=== PATIENT | male | born 1950 ===

== ENCOUNTER 2016-04-25 08:25 | Day surgery (SDC) | payer OTHER ==
[~2016-04-25] VITALS: Ht 180.3 cm; Wt 66.0 kg
[~2016-04-25 08:25] MED LIST: CEFAZOLIN 1000MG/55 ML D5W 55 ML IV SCH; LACTATED RINGER'S 1000ML IV SCH; PATIENT'S ALLERGY INFO NEEDS ENTERED SCH; PATIENT'S HEIGHT AND/OR WEIGHT NEEDED SCH
[2016-04-25] MEDS ORDERED: ASPI-428 PO (08:50)
[2016-04-25] MEDS ORDERED: CLOP1TAB15 PO (08:50)
[2016-04-25] MEDS ORDERED: METO-217 PO (08:50)
[2016-04-25 08:57] VITALS: BP 124/79; PULSE 82; TEMP 36.6; O2SAT 97; Ht 180.3 cm; Wt 66.0 kg
[2016-04-25] MEDS ORDERED: CEFAZOLIN SOD 1000MG/55 ML D5W IV ONE (09:24)
--- NOTE | 2016-04-25 09:49 | History & Physical Bridge Note ---
H&P Re-Evaluation Bridge Note: I have examined the patient, reviewed the History & Physical and in the interval since the performance of the History & Physical I have noted the following changes of clinical significance: No changes noted
[2016-04-25] MEDS ORDERED: BUPIVACAINE 0.5 % 5 MG/1 ML MPF 30ML VIAL ONE (10:02)
[2016-04-25] MEDS ORDERED: BACITRACIN 50000 UNIT VIAL ONE (10:02)
[2016-04-25] MEDS ORDERED: LIDOCAINE HCL 1% 20 ML VIAL ONE (10:02)
--- NOTE | 2016-04-25 11:29 | [facility] Post Operative Brief Note ---
Immediate Operative Summary Operative Date Apr 25, 2016. Pre-Operative Diagnosis BIV ICD AT [facility], [facility] Post-Operative Diagnosis SAME Procedure(s) Performed BIVENTRICULAR ICD GENERATOR CHANGE Surgeon JASON FLORES Learning Support Resource Room Teacher Surgeon(s) NONE Estimated Blood Loss <5CC Findings NONE Fluids (cc crystalloids) 200CC Specimens NONE Drains NONE Anesthesia NONE ONLY LOCAL Complication(s) None Disposition [facility]
[2016-04-25 11:30] VITALS: BP 134/78; PULSE 70; TEMP 37.2; O2SAT 98
--- NOTE | 2016-04-25 11:33 | Discharge Instructions ---
Discharge Instructions Visit Reason for Visit: Ischemic Cardiomyopathy, Paroxysmal V-Tach Discharge Discharge Diagnosis / Problem: BIV ICD AT [facility], [facility] Discharge Goals Goal(s): Improve function Activity Recommendations Lifting Limitations: no more than 10 pounds (FOR 2 WEEKS WITH THE LEFT ARM) May Resume Sexual Activity: when tolerated Shower/Bathe: tomorrow Driving or Machine Use: no limitations Anesthesia . Post Anesthesia Instructions: If you have had General Anesthesia or IV Sedation: * Do not drive today. * Resume driving when surgeon permits. * Do not make important decisions or sign legal documents today. * Call surgeon for: 1. Temperature elevations greater than 101 degrees F. 2. Uncontrollable pain. 3. Excessive bleeding. 4. Persistent nausea and vomiting. 5. Medication intolerance (nausea, vomiting or rash). * For nausea and vomiting use only clear liquids such as: tea, soda, bouillon until nausea subsides, then gradually increase diet as tolerated. * If you have any concerns or questions, call your surgeon's office. If physician is unavailable and it is an emergency, call 911 or go to the nearest emergency room. . Diet Recommendations Recommended Home Diet: resume previous diet Procedures Procedures Performed: BIVENTRICULAR ICD GENERATOR CHANGE Pending Studies Studies pending at discharge: no Medical Emergencies . Who to Call and When: Medical Emergencies: If at any time you feel your situation is an emergency, please call 911 immediately. . Non-Emergent Contact Non-Emergency issues call your: [employer] Officer . . "Provider Documentation" section prepared by Elke Hutchison.
[2016-04-25 11:46] VITALS: BP 142/78; PULSE 72; O2SAT 97
[2016-04-25 12:02] VITALS: BP 140/77; PULSE 86; TEMP 36.9; O2SAT 96
--- NOTE | 2016-04-29 03:14 | OPERATIVE REPORT ---
DATE OF OPERATION: 04/25/2016 PREOPERATIVE DIAGNOSES: Ischemic cardiomyopathy and a biventricular implantable cardioverter defibrillator at elective replacement indicator. POSTOPERATIVE DIAGNOSIS: Same. PROCEDURE: Biventricular implantable cardiac defibrillator rate responsive generator change. SURGEON: Dr. Elke Hutchison. SNOW FENCE ERECTOR: None. ANESTHESIA: Only local lidocaine, bupivacaine mixture were given; there was no conscious sedation. IV FLUIDS: 200 mL. BLOOD LOSS: Less than 5 mL. COMPLICATIONS: None. CONDITION: Stable. URINE OUTPUT: Not applicable. SPECIMENS: None. FINDINGS: None. DRAINS: None. INDICATIONS: This is a 66-year-old gentleman with a past medical history of ischemic cardiomyopathy, ejection fraction 70%. He underwent a biventricular implantable cardiac defibrillator back in 2010. Of note, he did have the [employer] battery depletion recall and his device did seem to have an expedited dropoff and hit JONATHAN, hyperlipidemia, gastroesophageal reflux disease, chronic systolic heart failure, [place] Heart Association class 3, coronary artery disease with an ME in 1986 and a CVA. Due to this patient hitting JONATHAN, he was recommended a generator change. CONSENT: Consent was obtained prior to the patient going into the electrophysiology. The patient was informed of risks, benefits and alternatives to the procedure. Risks include but not limited to sudden cardiac , cardiac arrhythmias, cerebrovascular accident, myocardial infarction, bleeding and infection. The patient understood these risks and agreed to the procedure as planned. Informed consent was obtained. DESCRIPTION OF THE PROCEDURE: The patient was brought into the electrophysiology lab in a fasting state. He was connected to continuous cardiac monitoring. A timeout was performed to ensure patient's identity and procedure correctly. The patient received prophylactic antibiotics prior to incision. He was prepped and draped over the left infraclavicular space in a normal surgical standard fashion. Local anesthesia only was given throughout the procedure for patient's comfort level. A 20 mL of 1% lidocaine, bupivacaine mixture were given over the prior surgical incision. Incision was made over the prior surgical incision. Blunt dissection was performed to identify the prior defibrillator. The capsule was disrupted using iris scissors and the defibrillator was actually freed from the capsule and removed from the body. The wires were tested intraoperatively, see below for results. The capsule was disrupted inferiorly and caudally to allow for a new blood flow. The pocket was flushed with copious amounts of bacitracin saline wash and inspected for hemostasis. The new defibrillator was then attached to the leads making sure that the pins were in appropriate position, passed the set screws and the set screws were tightened. The defibrillator was then placed into the pocket, making sure that the leads were lying flat beneath the device. The incision was closed in a 3-layer fashion using a 2-0 Vicryl suture followed by a 3-0 Vicryl interrupted suture followed by a 4-0 Monocryl running stitch and Dermabond was applied. EQUIPMENT: 1. Explanted generator was a [employer] [id number], serial #[id number], implanted 08/02/2010, voltage JONATHAN at 04/06/2016. 2. Right atrial lead - model #[id number], serial #[id number], implanted 08/02/2010. 3. Right ventricular lead - model #1265E61, serial #[id number], implanted 08/02/2010. 4. Left ventricular lead - model #[id number]-86, serial #[id number], implanted 08/02/2010. INTRAOPERATIVE TESTIN. Right atrial lead: P-wave 1.1 millivolts, impedance 465 ohms, threshold 0.7 volts at 1.3 milliamps. 2. Right ventricular lead: R-wave sensing 5.8 millivolts, impedance 400 ohms, threshold 1 volt at 2.5 milliamps. 3. Left ventricular lead programmed bipolar LV tip to LV ring, impedance 749 ohms, threshold 1.2 volts at 1.7 milliamps. FINAL MEASUREMENTS THROUGH THE DEVICE: 1. Right atrial lead: P-wave 0.9 millivolts, impedance 399 ohms, threshold 1 volt at 0.4 milliseconds. 2. Right ventricular lead: R-wave 6.9 millivolts, impedance 361 ohms, threshold 1.25 volts at 0.4 milliseconds. 3. Left ventricular lead programs bipolar LV tip to LV ring, impedance 703 ohms, threshold 1.25 volts at 0.4 milliseconds. 4. SVC coil 79 ohms and the RV coil 64 ohms. FINAL PARAMETERS: 1. DDDR 60/120. 2. Right atrial amplitude is 2 volts, pulse width 0.4 milliseconds, sensitivity 0.3 millivolts. 3. Right ventricular amplitude is 2.5 volts, pulse width 0.4 milliseconds, sensitivity 0.3 millivolts. 4. Left ventricular amplitude 1.75 volts, pulse width 0.4 milliseconds. 5. A VT monitor zone at 146 beats per minute, a VT zone at 176 beats per minute with 20 intervals, a VF zone at 200 is 30/40 beats per minute. IMPRESSION: Successful biventricular implantable cardiac defibrillator rate responsive generator change under fluoroscopic guidance. PLAN: The patient had to go home and drive himself since he did not have any conscious sedation. He should continue his home medications. He will call my office to let me know that he got home safely. He will follow up in my [place] office after 10 days for device and wound check. I attest to the content of the Intraoperative Record and any orders documented therein. Any exceptions are noted below. YANY
== END 2016-04-25 12:07 | disposition home or self-care (01) ==
LOC: C.ACU 08:25
PROVIDERS: ATTEND Internal Medicine
DX: Z45.02 Encounter for adjustment and management of automatic implantable cardiac defibrillator (principal); I25.10 Atherosclerotic heart disease of native coronary artery without angina pectoris; I25.5 Ischemic cardiomyopathy; R73.01 Impaired fasting glucose; I10 Essential (primary) hypertension; E78.5 Hyperlipidemia, unspecified

== ENCOUNTER → 2016-08-03 | Outpatient (CLI) | payer OTHER ==
[~2016-08-03] MED LIST changes: +ASPI-428 PO; -CEFAZOLIN 1000MG/55 ML D5W 55 ML IV SCH; +CLOP1TAB15 PO; -LACTATED RINGER'S 1000ML IV SCH; +METO-217 PO; -PATIENT'S ALLERGY INFO NEEDS ENTERED SCH; -PATIENT'S HEIGHT AND/OR WEIGHT NEEDED SCH
[2016-08-03 13:20] LABS: BLOOD UREA NITROGEN 13 mg/dl (7-18); BUN/CREATININE RATIO 13.5 (10-20); CARBON DIOXIDE 28 mmol/L (21-32); CHLORIDE 105 mmol/L (98-107); CREATININE 0.96 mg/dl (0.60-1.40); GLUCOSE 102 mg/dl (70-99); POTASSIUM 5.1 mmol/L (3.5-5.1); SODIUM 140 mmol/L (136-145)
[2016-08-03 13:38] LABS: CALCIUM 9.9 mg/dl (8.5-10.1)
== END | disposition home or self-care (01) ==
LOC: C.LABMFLN 09:05
PROVIDERS: ATTEND Family Medicine
DX: I25.5 Ischemic cardiomyopathy (principal)